=== PATIENT | female | born 1950 | race Caucasian/White ===

== ENCOUNTER → 2017-06-24 | Outpatient (REF) ==
[~2017-06-24] MED LIST: ALPHAG-P-0.1-5ML; AMITRIPTYLINE H75 M1 PO; CALCIUM + D 6001 TAB PO; CELEBREX 200MG200 MG PO; CHANTIX 1MG1 MG PO; DULERA1 ARO IH; LASIX 40MG TABL40 MG PO; LINZESS290CAP; LIPITOR 40MG TA40 MG PO; MASON NATURAL1000 MG PO; NATURAL E400 IU PO; NEURONTIN300 MG/CAP PO; ONE DAILY1 TA1 PO; PERCOCET 325 MG1 TA2 PO; STOOL SOFTENER100 M2 PO; SYNTHROID 0.10.15 MG PO; TRAVATAN Z 2.52.5 ML OU; VITAMIN B12500 MCG PO; VITAMIN C500 MG PO; XANAX .25M0.25 MG/TA PO; ZESTORETIC 12.51 TAB PO; ZESTORETIC 25 M1 TAB PO; [UNRECOGNIZED DRUG - CODE] PO; [UNRECOGNIZED DRUG - OTHER]
[2017-06-24 10:18] LABS: HIV 1/2 Antibodies Non-Reactive; HIV-1p24 Antigen Non-Reactive
[2017-06-24 23:33] LABS: HEPATITIS B SURFACE ANTIBODY <2.0 (()); HEPATITIS C VIRUS ANTIBODY Negative (())
== END ==
LOC: ZMSC 09:26 → ZLAB.WCH 09:26
PROVIDERS: Urology
DX: Z01.89 Encounter for other specified special examinations (principal)

== ENCOUNTER 2021-07-04 08:31 | Day surgery (SDC) | payer MEDICARE ==
[2021-07-04] VITALS (9 sets, daily range): BP systolic 126–160; BP diastolic 64–96; PULSE 85–102; TEMP 97.7
[~2021-07-04] VITALS: Ht 155.1 cm; Wt 120.0 kg
[2021-07-04 09:04] LABS: HEMATOCRIT 41.8 % (37.0-47.0); HEMOGLOBIN 13.6 g/dl (12.5-16.0); MEAN CELL VOLUME 91 fl (80.0-100.0); MEAN CORPUSCULAR HEMOGLOBIN 30 pg (27-31); MEAN CORPUSCULAR HGB CONC 33 g/dl (33.0-37.0); MEAN PLATELET VOLUME 9.4 fl (7.4-10.4); PLATELET COUNT 339 K/mm3 (130-400); RED BLOOD COUNT 4.61 M/mm3 (4.10-5.30); REDCELL DISTRIBUTION WIDTH-CV 14.3 % (11.5-14.5)
[2021-07-04 09:17] LABS: CALCIUM 9.4 mg/dL (8.4-10.2); CREATININE, serum 0.72 mg/dL (0.57-1.11)
[2021-07-04] MEDS ORDERED: LINZESS290CAP PO (09:22)
[2021-07-04] MEDS ORDERED: ASPIRIN E.C. 8181 MG PO (09:22)
[2021-07-04] MEDS ORDERED: EUTHYROX100 MCG PO (09:23)
[2021-07-04] MEDS ORDERED: PROTONIX 40MG T40 MG PO (09:23)
[2021-07-04] MEDS ORDERED: FLEXERIL 1010 MG/TAB PO (09:24)
[2021-07-04] MEDS ORDERED: FOLIC ACID 40400 MCG PO (09:24)
[2021-07-04] MEDS ORDERED: FERROUS SU325 MG/TAB PO (09:25)
[2021-07-04] MEDS ORDERED: CALCIUM 600 MG1 EAC2 PO (09:26)
[2021-07-04] MEDS ORDERED: XALATAN EYE DROPS OU (09:27)
[2021-07-04] MEDS ORDERED: COMBIGAN 0.2%-0.5 ML OU (09:27)
[2021-07-04 09:29] LABS: INR 1.1 (0.8-3.0); PROTHROMBIN TIME 12.1 SECONDS (9.7-12.8)
[2021-07-04 09:32] LABS: PARTIAL THROMBOPLASTIN TIME 29.3 SECONDS (26.0-37.0)
--- NOTE | 2021-07-04 09:59 | NUR ---
SEE MERGE FOR ALL MEDICATION ADMINISTRATION TIMES/DOSAGES AND INTRA/POST PROCEDURE SEDATION ASSESSMENTS. PT ON BIPAP FOR PROCEDURE.
--- NOTE | 2021-07-04 10:30 | NUR ---
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 CALL LIGHT IN REACH, RADIAL SITE IS CLEAN, HOB ELEVATED, TAKES WATER AND WATCHES TV, LUNCH ORDERED
--- NOTE | 2021-07-04 11:45 | NUR ---
CON'T SAME, EATS MEAL, WATCHES TV, RADIAL SITE IS CLEAN AND DRY, NO SWELLING, SPOKE WITH SON ON PHONE WILL COME AND INBOUND CALL CENTER AGENT PT
--- NOTE | 2021-07-04 12:30 | NUR ---
2ML OF AIR REMOVED FROM BAND, NO SIGNS OF SWELLING OR BLEEDING, REVIEWED WITH PT DISCHARGE INST. ON CARE OF SITE, PRECAUTIONS AND ACTIVITY. NEXT FOLLOWUP APPT WAS MADE, VERBAL UNDERSTANDING.
--- NOTE | 2021-07-04 13:00 | NUR ---
PT UP TO B/R WITH ASSIST TO VOID THEN TO CHAIR, TOLERATES WELL, AIR REMOVED FROM BAND 2CC AT A TIME OVER 20 WITH NO BLEEDING, BANDAID OVER SITE AND WRAPPED WITH COBAN FOR SUPPORT. IV D'CD INTACT.
--- NOTE | 2021-07-04 13:40 | NUR ---
PT UP IN CHAIR DRESSED, WAITS FOR SON FOR RIDE, THEN DISCHARGED VIA W/C TO CAR WITH SON AT 1350
== END 2021-07-04 13:50 | disposition home or self-care (01) ==
LOC: COL.CAR 08:31
PROVIDERS: Internal Medicine Cardiovascular Disease
DX: R94.39 Abnormal result of other cardiovascular function study (principal); I11.9 Hypertensive heart disease without heart failure; E78.5 Hyperlipidemia, unspecified; Z20.822 Contact with and (suspected) exposure to COVID-19; Z79.899 Other long term (current) drug therapy
CPT/HCPCS: C1769; J1644; J2250; J3010; Q9967

== ENCOUNTER 2022-07-28 22:10 | Inpatient (IN) | payer MEDICARE ==
[~2022-07-28] VITALS: Ht 157.5 cm; Wt 110.9 kg
[~2022-07-28 22:10] MED LIST changes: +ASPIRIN E.C. 8181 MG PO; +CALCIUM 600 MG1 EAC2 PO; +COMBIGAN 0.2%-0.5 ML OU; +EUTHYROX100 MCG PO; +FERROUS SU325 MG/TAB PO; +FLEXERIL 1010 MG/TAB PO; +FOLIC ACID 40400 MCG PO; +LINZESS290CAP PO; +PROTONIX 40MG T40 MG PO; +XALATAN EYE DROPS OU
--- NOTE | 2022-07-28 23:40 | NUR ---
Received report from [place] nurseDeana.
[2022-07-29] VITALS (1054 sets, daily range): BP systolic 77–143; BP diastolic 40–82; PULSE 102–121; TEMP 98–100; O2SAT 48–100
--- NOTE | 2022-07-29 00:05 | NUR ---
Patient arrives via EMS to ICU room 2. Patient transferred to ICU bed via sliding board. She is alert and oriented upon arrival. Initial BP of 92/40 with HR in 120s ST; other vitals within normal limits. She arrives receiving levophed drip at rate programmed by Aakash Viera of 6mcg/min, non-weight based. This RN programmed levophed to run at ordered start rate of 0.1 mcg/kg/min. Patient is tachypneic, exhibiting pursed-lip breathing, with a respiratory rate in the 30s. Patient is most comfortable in a nearly supine-position. Despite labored breathing, patient is on room air with sats 95% or greater. Baugh catheter placed by [place] in place and to dependent drainage with hazy candida urine output.
--- NOTE | 2022-07-29 01:00 | NUR ---
Patient's belongings include an [employer] bag, home CPAP, a pair of navy sweatpants, shoes, a pill box, and yellow denture cup with top and bottom dentures. She denies having hearing aids. Reports having glasses but they are not noted to be with other belongings. No jewelry noted on her person. No cell phone, purse, or wallet found within belongings. Patient states she believes her cell phone is with her son,
[2022-07-29] MEDS ORDERED: LASIX 20MG TABL20 MG PO (01:27)
[2022-07-29] MEDS ORDERED: CELEBREX 1100 MG/CAP PO (01:28)
[2022-07-29] MEDS ORDERED: CHANTIX 1MG1 MG PO (01:29)
[2022-07-29] MEDS ORDERED: NEXIUM 40MG40 MG PO (01:29)
[2022-07-29] MEDS ORDERED: NORCO 325 MG-101 TAB PO (01:30)
[2022-07-29] MEDS ORDERED: UNIPHYL 400MG400 MG PO (01:31)
[2022-07-29] MEDS ORDERED: XANAX 1MG1 MG PO (01:32)
[2022-07-29] MEDS ORDERED: GLUCOPHAGE XR500 M1 PO (01:32)
--- NOTE | 2022-07-29 03:13 | NUR ---
HAD RECEIVED CALL FROM KNOWLEDGE ENGINEER. SHE STATES THAT PT HAS HER HOME CPAP AND NEEDS HELP SETTING UP. PRESENTED TO ROOM AND LAB WAS IN ROOM PREPARING TO DRAW BLOOD. CPAP SET UP ON TABLE AT SIDE OF BED. CPAP IS COVERED IN DIRT, ANIMAL HAIR, AND RESIDUE. OPENED CPAP AND THERE WAS SLIMEY PINK RESIDUE AND DIRT INSIDE OF CPAP AND THE WATER RESEVOIR WAS GUNKY. CPAP CLEANED WITH CLEANING BRUSH, MOUTH SPONGE STICK, STERILE WATER, AND HYDROGEN PEROXIDE. OUTSIDE OF CPAP WAS ALSO WIPED DOWN. WATER ADDED TO CPAP FOR USE. ASKED PT WHEN THE LAST TIME SHE CLEANED HER CPAP. SHE PAUSED FOR A MOMENT AND SAYS "EVERYDAY". ALSO ASKED WHEN THE LAST TIME HER FILTER WAS CHANGED. AGAIN PT PAUSED AND TOOK A MOMENT, AND THEN SAYS "UMM, LAST WEEK." MASK WAS ALSO CLEANED. EDUCATED PATIENT ABOUT THE IMPORTANCE OF CLEANING CPAP REGULARLY AND CHANGING WATER EVERY DAY. ALSO RECOMMENDED TO PATIENT TO SPEAK WITH HER PROVIDER, HOME HEALTH COMPANY, AND/OR HER INSURANCE COMPANY ABOUT GETTING A [employer] CPAP CLEANING MASHINE. EDUCATED ABOUT THE RISK OF BREATHING IN MOLD AND BACTERIA WITHIN THE CPAP. ALSO STATED FOR HER TO USE DISTILLED WATER WITH CPAP. HIGHLY RECOMMEND THAT PT IS GIVEN FURTHER EDUCATION AND INSTRUCTION REGARDING USE OF CPAP AT HOME, PROPER CLEANING ROUTINE AND SCHEDULE. ALSO RECOMMENDING THAT SOMEONE FOLLOW UP WITH PATIENT WHEN SHE IS AWAKE AND ALERT AND UNDISTRACTED BY OTHER PROVIDERS/PROCEDURES.
[2022-07-29 03:35] LABS: HEMATOCRIT 41.1 % (37.0-47.0); HEMOGLOBIN 13.1 g/dl (12.5-16.0); MEAN CELL VOLUME 82 fl (80.0-100.0); MEAN CORPUSCULAR HEMOGLOBIN 26 pg (27-31); MEAN CORPUSCULAR HGB CONC 32 g/dl (33.0-37.0); MEAN PLATELET VOLUME 9.8 fl (7.4-10.4); PLATELET COUNT 469 K/mm3 (130-400); RED BLOOD COUNT 5.04 M/mm3 (4.10-5.30); REDCELL DISTRIBUTION WIDTH-CV 15.8 % (11.5-14.5)
[2022-07-29 03:50] LABS: ALBUMIN 3.4 gm/dL (3.4-4.8); BILIRUBIN,TOTAL 0.6 mg/dL (0.2-1.2); CALCIUM 8.4 mg/dL (8.4-10.2); MAGNESIUM 2.4 mg/dL (1.6-2.6); POTASSIUM 3.6 mmol/L (3.5-4.5); TOTAL PROTEIN 6.8 gm/dL (6.2-8.1)
[2022-07-29 03:59] LABS: BAND 18 % (0-10); LYMPHOCYTE 5 % (20.0-51.0); NEUTROPHILS 74 % (42.0-75.2); PLATELET ESTIMATE INCREASED (NORMAL)
[2022-07-29 04:00] LABS: ANISOCYTOSIS 1+; HYPOCHROMIA 2+
--- NOTE | 2022-07-29 09:21 | NUR ---
SW met with patient to complete intake. Patient reports that she lives at home with her son Aguilar ([phone]) in [place]. She is somewhat independent with her ADL's and IADL's but verbalizes that Aguilar has to assist much of the time. Patient denies any DME use to assist with ambulation. She has no home oxygen needs, but does utilizes a CPAP when she is sleeping both in the day time and night time. PCP is BETO Dsouza out of [place] and she utilizes [facility] pharmacy in [place] for prescriptions. Patient does not have a DPOA-HC established at this time, but verbalizes she would like it to be her son in law. Educated the patient on what a DPOA_HC is and that we can assist with completing form during stay. Patient verbalizes her agreement and understanding. At this time, patient getting cares by patients RN at this time.
--- NOTE | 2022-07-29 09:36 | NUR ---
BEDSIDE REPORT RECEIVED FROM ABDULAZIZ DAWKINS. PT RESTING IN BED, VSS. LEVOPHED INFUSING ORDERED TO 20G IV IN LEFT AC. RECTAL TUBE AND ROBERTSON CATHETER IN PLACE TO DEPENDENT DRAINAGE. CALL LIGHT IN REACH, PT USES FOR NEEDS.
--- NOTE | 2022-07-29 16:02 | NUR ---
Telehealth visit conducted with Dr. David Singh, Infectious Disease. Patient consented to visit. Patient's daughter and granddaughter present. Nurse present. Telecommunication initiated without any difficulties during exam. All questions were answered by Dr. Singh
--- NOTE | 2022-07-29 21:00 | NUR ---
Patient resting quietly in bed watching TV. She is alert and oriented. Vitals within normal limits; she continues on room air and levophed drip continues to infuse, see IV drip titrations. PRN pain medication administered per patient's request for back and abdominal pain. Baugh catheter and rectal tube to dependent drainage.
[2022-07-30] VITALS (504 sets, daily range): BP systolic 106–139; BP diastolic 56–95; PULSE 96–112; TEMP 98.7–99.2; O2SAT 62–100
[2022-07-30 07:05] LABS: BASO # 0.1 K/mm3 (0.0-0.2); BASO % 0.6 % (0.0-2.0); EOS # 0.1 K/mm3 (0.0-0.7); EOS % 0.3 % (0.0-4.0); GRAN # 12.6 K/mm3 (1.4-6.5); GRAN % 83.2 % (42.2-75.2); LYMPH # 1.6 K/mm3 (1.2-3.4); LYMPH % 10.4 % (20.0-51.0); MEAN CELL VOLUME 82 fl (80.0-100.0); MEAN CORPUSCULAR HGB CONC 32 g/dl (33.0-37.0); MEAN PLATELET VOLUME 9.7 fl (7.4-10.4); MONO # 0.7 K/mm3 (0.1-0.6); MONO % 4.4 % (1.7-9.3); RED BLOOD COUNT 3.81 M/mm3 (4.10-5.30); REDCELL DISTRIBUTION WIDTH-CV 16.1 % (11.5-14.5)
[2022-07-30 07:14] LABS: HEMATOCRIT 31.2 % (37.0-47.0); MEAN CORPUSCULAR HEMOGLOBIN 27 pg (27-31)
[2022-07-30 07:15] LABS: HEMOGLOBIN 10.1 g/dl (12.5-16.0); PLATELET COUNT 340 K/mm3 (130-400)
[2022-07-30 07:21] LABS: ALBUMIN 2.7 gm/dL (3.4-4.8); CREATININE, serum 1.69 mg/dL (0.57-1.11); MAGNESIUM 2.2 mg/dL (1.6-2.6); PHOSPHOROUS 4.5 mg/dL (2.3-4.7); POTASSIUM 3.3 mmol/L (3.5-4.5)
--- NOTE | 2022-07-30 10:29 | NUR ---
Suit Maker met with PAtient in ICU at bedside to conduct Care Managment Assessment and discuss discharge planning. Patient lives in [place], [place] with her son, Aguilar P:[phone] and his . Patient is established with PCP Dr. Martin and is covered by [facility] HIt[facility] with [facility] as secondary. Patient reports to recieve Rx from [facility] in [place], [place]. Marvin endorses the use of a CPAP at night and states that she has DME walker and wheelchair at home however does not use them often. Patient denies having recieved home health and SNF services in the past. PAtient reports to not have advanced directives at this time and would like to recieve and review advanced directive documents. SW will continue to follow. Discharge Plan: Pending medical reccomendations.
--- NOTE | 2022-07-30 14:34 | NUR ---
Telehealth visit conducted with Dr. David Singh, Infectious Disease. Patient consented to visit. Dr. Singh visited with patients nure prior to visiting with patient. Telecommunication initiated without any difficulties during exam. All questions were answered by Dr. Singh
--- NOTE | 2022-07-30 17:36 | NUR ---
RECTAL TUBE REMOVED. ANGIE CARE PROVIDED.
[2022-07-31 00:31] VITALS: BP 122/59; PULSE 104; TEMP 100
[2022-07-31 04:23] VITALS: BP 124/71; PULSE 100; TEMP 98.6
[2022-07-31 06:56] LABS: BASO % 0.3 % (0.0-2.0); EOS # 0.1 K/mm3 (0.0-0.7); EOS % 0.9 % (0.0-4.0); GRAN # 9.1 K/mm3 (1.4-6.5); GRAN % 78.5 % (42.2-75.2); LYMPH # 1.8 K/mm3 (1.2-3.4); LYMPH % 15.2 % (20.0-51.0); MEAN CELL VOLUME 83 fl (80.0-100.0); MEAN CORPUSCULAR HGB CONC 32 g/dl (33.0-37.0); MEAN PLATELET VOLUME 10.4 fl (7.4-10.4); MONO # 0.5 K/mm3 (0.1-0.6); PLATELET COUNT 324 K/mm3 (130-400); RED BLOOD COUNT 3.35 M/mm3 (4.10-5.30); REDCELL DISTRIBUTION WIDTH-CV 15.7 % (11.5-14.5)
[2022-07-31 07:01] LABS: HEMATOCRIT 27.8 % (37.0-47.0); HEMOGLOBIN 8.8 g/dl (12.5-16.0); MEAN CORPUSCULAR HEMOGLOBIN 26 pg (27-31)
[2022-07-31 07:09] LABS: ALBUMIN 2.5 gm/dL (3.4-4.8); CALCIUM 8.2 mg/dL (8.4-10.2); CREATININE, serum 0.85 mg/dL (0.57-1.11); MAGNESIUM 1.9 mg/dL (1.6-2.6); PHOSPHOROUS 2.7 mg/dL (2.3-4.7); POTASSIUM 3.6 mmol/L (3.5-4.5)
[2022-07-31 07:30] VITALS: BP 132/63; PULSE 102; TEMP 98.4
[2022-07-31] MEDS ORDERED: CIPRO 500MG TA500 MG PO (11:06)
[2022-07-31 11:58] VITALS: BP 131/77; PULSE 111; TEMP 98.1
--- NOTE | 2022-07-31 15:02 | NUR ---
Patient discharging home today with orders for Home Health. TRISH met with patient who is in agreement with this plan. SW provided Medicare.gov list of agencies. Patient selected [facility]. Patient also advised she is in the process of getting additional in home services through [place]. Patient will return home with her son, Aguilar today. TRISH contacted Ye at [facility] and faxed referral with discharge orders. Ye Discharge Plan: Home with [facility]
--- NOTE | 2022-07-31 15:05 | NUR ---
Discharge instructions given both verbal and handwritten. Discussed f/u appt, s/s of infection, home medications and when to return to ED. Verbalizes understanding/denies questions/concerns. PICC has already been removed. Instructed to call when arrives to be escorted off zaidi in wheeelchair.
--- NOTE | 2022-07-31 15:30 | NUR ---
Telehealth visit conducted with Dr. David Singh, Infectious Disease. Patient consented to visit. Telecommunication initiated without any difficulties during exam. All questions were answered by Dr. Singh
== END 2022-07-31 15:59 | disposition home health service (06) | DRG 871 ==
LOC: ICU 22:10 → MEDICAL 07-30 19:40
PROVIDERS: Student in an Organized Health Care Education/Training Program; ADMIT Internal Medicine
PROC: 02H633Z Insertion of Infusion Device into Right Atrium, Percutaneous Approach (ICD-10-PCS; principal; 2022-07-29)
PROC: 5A09357 Assistance with Respiratory Ventilation, Less than 24 Consecutive Hours, Continuous Positive Airway Pressure (ICD-10-PCS; 2022-07-29)
DX: A41.51 Sepsis due to Escherichia coli [E. coli] (principal); R57.1 Hypovolemic shock; R65.21 Severe sepsis with septic shock; N17.9 Acute kidney failure, unspecified; E87.20 Acidosis, unspecified; I50.32 Chronic diastolic (congestive) heart failure; A09 Infectious gastroenteritis and colitis, unspecified; E87.6 Hypokalemia; E78.5 Hyperlipidemia, unspecified; G47.33 Obstructive sleep apnea (adult) (pediatric); G89.29 Other chronic pain; E03.9 Hypothyroidism, unspecified; K21.9 Gastro-esophageal reflux disease without esophagitis; J44.9 Chronic obstructive pulmonary disease, unspecified; G25.81 Restless legs syndrome; I11.0 Hypertensive heart disease with heart failure; K59.00 Constipation, unspecified; I95.9 Hypotension, unspecified; E11.9 Type 2 diabetes mellitus without complications; F39 Unspecified mood [affective] disorder; Z96.651 Presence of right artificial knee joint; F32.A Depression, unspecified; Z99.81 Dependence on supplemental oxygen; Z98.51 Tubal ligation status; Z90.710 Acquired absence of both cervix and uterus; Z90.89 Acquired absence of other organs; Z79.82 Long term (current) use of aspirin; Z79.899 Other long term (current) drug therapy; Z79.890 Hormone replacement therapy; Z87.891 Personal history of nicotine dependence; Z88.8 Allergy status to other drugs, medicaments and biological substances; Z88.1 Allergy status to other antibiotic agents
CPT/HCPCS: C1751; J0456; J0696; J0744; J1644; J1815; J2405; J7030; J7050; J7060